=== PATIENT | male | born 1990 | race Caucasian/White ===

== ENCOUNTER 2017-02-05 16:00 | Inpatient (IN) | payer OTHER ==
[~2017-02-05] VITALS: Ht 165.1 cm; Wt 67.6 kg
--- NOTE | 2017-02-05 16:00 | NUR ---
Patient was BIBA at this time. [facility] at scene.
--- NOTE | 2017-02-05 16:01 | NUR ---
Dr. Cheney evaluating patient at [facility].
[2017-02-05] MEDS ORDERED: BENZTROPINE 2 MG/2 ML AMP IM ONE (16:05)
[2017-02-05] MEDS ORDERED: LORazepam 2 MG/ML VIAL IM ONE (16:05)
[2017-02-05] MEDS ORDERED: HALOPERIDOL IM 5 MG/ML VIAL IM ONE (16:05)
[2017-02-05] MEDS ORDERED: LORazepam 2 MG/ML VIAL ONE (16:14)
[2017-02-05] MEDS ORDERED: HALOPERIDOL IM 5 MG/ML VIAL ONE (16:15)
[2017-02-05 16:16] VITALS: BP 124/64
[2017-02-05] MEDS ORDERED: BENZTROPINE 2 MG/2 ML AMP ONE (16:16)
--- NOTE | 2017-02-05 16:17 | NUR ---
LAB drawing blood at [facility].
--- NOTE | 2017-02-05 16:20 | NUR ---
Patient taken to bed 03 via gurney per EMS.
[2017-02-05 16:28] LABS: BASOPHILS # (AUTO) 0.4 K/uL (0.00-0.22); EOSINOPHILS # (AUTO) 0.2 K/uL (0-0.4); EOSINOPHILS % (AUTO) 2.1 % (0.0-4.0); HEMATOCRIT 41.6 % (36-52); HEMOGLOBIN 14.4 g/dL (12.0-18.0); LYMPHOCYTES # (AUTO) 1.5 K/uL (2.0-11.5); MEAN CORPUSCULAR HEMOGLOBIN 31 pg (27-31); MEAN CORPUSCULAR HGB CONC 35 g/dL (33-37); MEAN CORPUSCULAR VOLUME 90 fL (80-94); MONOCYTES # (AUTO) 0.5 K/uL (0.8-1.0); MONOCYTES % (AUTO) 5.8 % (1.7-9.3); NEUTROPHILS # (AUTO) 5.2 K/uL (1.8-7.7); PLATELET COUNT (AUTO) 203 K/uL (140-450); RED BLOOD CELL COUNT(AUTO) 4.65 MIL/uL (4.20-6.10); RED CELL DISTRIBUTION WIDTH 13.3 % (11.6-13.7); WHITE BLOOD COUNT (AUTO) 7.8 K/uL (4.8-10.8)
--- NOTE | 2017-02-05 16:30 | NUR ---
[place] [employer] at bedside.
--- NOTE | 2017-02-05 16:33 | NUR ---
Patient being moved to bed 07 via gurney per EMT.
[2017-02-05] MEDS ORDERED: NACL 0.9% 1,000 ML IV ONE (16:40)
--- NOTE | 2017-02-05 16:49 | NUR ---
26/M biba from home with complaints of ALOC. Pt arrived to ED in four point restraints. Pt states he is hearing voices and is requesting to be restrained and states "I don't want to act like a fool. The voices will make me act like a fool." Pt denies wanting to hurt himself or others. Pt states "The voices are playing witch craft on me." Pt also states he uses meth, last meth use was on Father's day per patient. Pt is AOX3, name, location, date, not to situation d/t hearing voices. VSS.
--- NOTE | 2017-02-05 17:00 | NUR ---
X-Ray at bedside.
--- NOTE | 2017-02-05 17:10 | NUR ---
Pt placed on 5150 hold per [place] [facility]. Danger to self and others. 5150 reads pt is hearing voices and patient requesting to be placed in restraints to that "he does not act like a fool."
--- NOTE | 2017-02-05 17:13 | NUR ---
Physician order given to place velcor type restraints to BUE and BLE to prevent injury to self and others. Resraints placed with quick-release ties to bed frame. Pt under observation.
[2017-02-05 17:22] LABS: ALANINE AMINOTRANSFERASE 16 U/L (16-63); ALBUMIN 3.9 g/dL (3.4-5.0); ALCOHOL, BLOOD < 3 mg/dL (<3); ALKALINE PHOSPHATASE 105 U/L (46-116); ANION GAP 17.8 (8-16); ASPARTATE AMINOTRANSFERASE 17 U/L (15-37); CALCIUM 8.5 mg/dL (8.5-10.1); CARBON DIOXIDE 23.8 mmol/L (21-32); CHLORIDE 104 mmol/L (98-107); CREATININE 1.1 mg/dL (0.7-1.3); GFR ARICAN-AMERICAN 103 mL/min (>90); GFR NON ARICAN-AMERICAN 85 mL/min (>90); GLUCOSE 101 mg/dL (74-106); POTASSIUM 3.6 mmol/L (3.5-5.1); SODIUM SERUM 142 mmol/L (136-145); TOTAL BILIRUBIN 0.4 mg/dL (0.0-1.0); UREA NITROGEN, BLOOD 12 mg/dL (7-18)
[2017-02-05 17:23] LABS: ACETAMINOPHEN < 0.5 ug/ml (10-30); SALICYLATE < 2.8 mg/dL (2.8-20.0)
--- NOTE | 2017-02-05 17:25 | NUR ---
All clothing removed. Pt noted with only one shoe. Pt does not know what happen to the other shoe "I think the ambulance has it or I don't know." Pt placed in a gown. All belongings placed in a bag and set aside away from pt bedside. Security called to bedside to review the patient's belongings. Restraints removed. Pt is calm and cooperative at this time. Dr. Prakash made aware. CT also called to poultry picking machine tender the patient for the exam.
[2017-02-05 17:30] LABS: LACTIC ACID 2.1 mmol/L (0.4-2.0)
--- NOTE | 2017-02-05 17:31 | NUR ---
Per Lab, lactic acid is 2.1. I made this known to Dr. Prakash.
[2017-02-05] MEDS ORDERED: AZITHROMYCIN 500 MG in DEXTROSE 5% 250 ML IV ONE (17:40)
[2017-02-05] MEDS ORDERED: ONDANSETRON 4 MG/2 ML VIAL IVP PRN (17:40)
[2017-02-05] MEDS ORDERED: ACETAMINOPHEN 325 MG TAB PO PRN (17:40)
[2017-02-05] MEDS ORDERED: HYDROcodone/APAP 5/325 MG 1 TAB TAB PO PRN (17:40)
[2017-02-05 17:42] LABS: APPEARANCE,URINE CLEAR (CLEAR); BILIRUBIN,URINE NEGATIVE (NEGATIVE); BLOOD, URINE NEGATIVE (NEGATIVE); COLOR,URINE YELLOW (YELLOW); LEUKOCYTE ESTERASE ,URINE NEGATIVE (NEGATIVE); NITRITE, URINE NEGATIVE (NEGATIVE); PROTEIN,URINE NEGATIVE (NEGATIVE); UGLUCOSE NEGATIVE (NEGATIVE); UROBILINOGEN,URINE 0.2 EU/dL (0.2 - 1)
[2017-02-05 17:45] LABS: AMPHETAMINE, URINE NEG. ng/ml (NEG <=1000); BARBITURATE, URINE NEG. ng/ml (NEG <=200); BENZODIAZEPINE, URINE NEG. ng/mL (NEG <=200); CANNABINOID, URINE NEG. ng/mL (NEG <=50); COCAINE, URINE NEG. ng/mL (NEG <=300); OPIATE, URINE NEG. ng/mL (NEG <=2000); PHENCYCLIDINE SCREEN,URINE NEG. ng/mL (NEG <=25)
--- NOTE | 2017-02-05 17:46 | NUR ---
Pt taken to CT via gurney. Sister at bedside.
--- NOTE | 2017-02-05 17:56 | NUR ---
[facility]
--- NOTE | 2017-02-05 17:57 | NUR ---
Patient back from CT scan.
[2017-02-05] MEDS ORDERED: cefTRIAXone 1,000 MG VIAL ONE (18:05)
[2017-02-05] MEDS ORDERED: AZITHROMYCIN 500 MG INJ VIAL IV ONE ×2 (18:05→22:06)
--- NOTE | 2017-02-05 18:12 | NUR ---
Sister and mother at bedside. Pt continues to be calm and cooperative. Food tray provided. VSS.
--- NOTE | 2017-02-05 18:39 | NUR ---
Patient appears to be resting comfortably in bed. VSS.
--- NOTE | 2017-02-05 19:27 | NUR ---
Pt report given to Escobar HARVEY. Transfer of care at this time.
--- NOTE | 2017-02-05 22:20 | NUR ---
Patient will be admitted to care of [facility]. Admited to TELEMETRY. Will go to room 123B. Belongings list completed. Report to MATILDE HARVEY.
--- NOTE | 2017-02-05 22:30 | NUR ---
RECEIVED REPORT FROM ED RN FOR CONTINUITY OF CARE. 26 Y.O. MALE BROUGHT TO UNIT WITH DX: SUICIDAL, PATIENT IS A&OX4 DISCUSSED PLAN OF CARE WITH PATIENT, ABLE TO VERBALIZE UNDERSTANDING. SHIFT ASSESSMENT DONE, VS TAKEN, STABLE AT THIS TIME. IV TO RT HAND PATENT AND INFUSING FLUIDS WELL. MRSA SWAB COLLECTED, WRISTBANDS APPLIED. NO S/S OF RESPIRATORY DISTRESS NOTED ON ROOM AIR. PATIENT DENIES PAIN. SAFETY PRECAUTIONS ENFORCED. 1:1 SITTER AT BEDSIDE. CALL LIGHT WITHIN REACH, WILL CONTINUE TO MONITOR.
[2017-02-05] MEDS: AZITHROMYCIN 500 MG in DEXTROSE 5% 250 ML IV SCH (22:33)
[2017-02-05] MEDS: NACL 0.9% 1,000 ML IV SCH (22:33)
[2017-02-05 22:51] VITALS: BP 119/62
[2017-02-06] VITALS (7 sets, daily range): BP systolic 114–133; BP diastolic 50–85
--- NOTE | 2017-02-06 00:30 | NUR ---
VITAL SIGNS STABLE, PATIENT RESTING AT THIS TIME. NO S/S OF DISTRESS OR DISCOMFORT NOTED. 1:1 SITTER AT BEDSIDE.
--- NOTE | 2017-02-06 02:07 | NUR ---
PATIENT SLEEPING AT THIS TIME. NO S/S OF DISTRESS OR DISCOMFORT NOTED. 1:1 SITTER AT BEDSIDE. WILL CONTINUE TO MONITOR.
[2017-02-06] MEDS: NACL 0.9% 1,000 ML IV SCH ×2 (03:31→13:02)
--- NOTE | 2017-02-06 04:12 | NUR ---
VITAL SIGNS STABLE. PATIENT RESTING IN BED NO S/S OF DISTRESS OR DISCOMFORT NOTED. 1:1 SITTER AT BEDSIDE.
--- NOTE | 2017-02-06 06:00 | NUR ---
PATIENT SLEEPING AT THIS TIME, NO S/S OF DISTRESS OR DISCOMFORT NOTED.
[2017-02-06 06:17] LABS: HEMATOCRIT 42.7 % (36-52); HEMOGLOBIN 14.5 g/dL (12.0-18.0); MEAN CORPUSCULAR HEMOGLOBIN 31 pg (27-31); MEAN CORPUSCULAR HGB CONC 34 g/dL (33-37); MEAN CORPUSCULAR VOLUME 90 fL (80-94); PLATELET COUNT (AUTO) 188 K/uL (140-450); RED BLOOD CELL COUNT(AUTO) 4.72 MIL/uL (4.20-6.10); RED CELL DISTRIBUTION WIDTH 13.2 % (11.6-13.7)
[2017-02-06 06:34] LABS: ALBUMIN 3.5 g/dL (3.4-5.0); ANION GAP 9.3 (8-16); CARBON DIOXIDE 30.1 mmol/L (21-32); CREATININE 0.9 mg/dL (0.7-1.3); POTASSIUM 4.4 mmol/L (3.5-5.1); TOTAL BILIRUBIN 0.8 mg/dL (0.0-1.0); TOTAL PROTEIN, SERUM 6.5 g/dL (6.4-8.2)
--- NOTE | 2017-02-06 07:14 | NUR ---
ENDORSED PATIENT TO DAY RN FOR CONTINUITY OF CARE, PATIENT IS IN STABLE CONDITION.
--- NOTE | 2017-02-06 07:30 | NUR ---
RECEIVED REPORT FROM MATILDE HARVEY. PT SLEEPING BUT EASILY AWAKING BY INITIAL ASSESSMENT. ROOM AIR, NO S/S OF RESPIRATORY DISTRESS NOTED. IV SITE INTACT AND PATENT. ABDOMEN SOFT NON TENDER WITH ACTIVE BOWEL SOUNDS. PT ABLE TO MOVE ALL HIS EXTREMITIES, 1:1 SITTER AT BEDSIDE, POC EXPLAINED TO PT, PT VERBALIZED UNDERSTANDING, CALL LIGHT IN REACH, WILL CONTINUE TO MONITOR.
[2017-02-06 07:37] LABS: BAND % (MANUAL) 1 % (0-8); BASOPHILS % (MANUAL) 1 % (0-2); EOSINOPHILS % (MANUAL) 4 % (0-4); LYMPHOCYTES % (MANUAL) 28 % (20-46); MONOCYTES % (MANUAL) 6 % (5-12); NEUTROPHILS % (MANUAL) 60 (43-65)
--- NOTE | 2017-02-06 08:58 | NUR ---
PATIENT HAS BEEN SCREENED AND CATEGORIZED HIGH NUTRITION RISK. PATIENT WILL BE SEEN WITHIN 1-2 DAYS OF ADMISSION. 02/06/17-02/07/[address] Addendum: 02/06/17 at [address] ERROR
[2017-02-06] MEDS ORDERED: ENOXAPARIN 40 MG/0.4 ML SYR SUBQ SCH (09:00)
--- NOTE | 2017-02-06 09:15 | NUR ---
DUE MEDS GIVEN. PT TOLERATED WELL.
[2017-02-06] MEDS: LORazepam 2 MG/ML VIAL IVP PRN ×3 (11:09→22:28)
--- NOTE | 2017-02-06 11:09 | NUR ---
PT FELT ANXIETY, ATIVAN GIVEN ORDERED. PT'S SISTER AT BEDSIDE. WILL CONTINUE TO MONITOR.
--- NOTE | 2017-02-06 12:15 | NUR ---
PT STATED ANXIETY RELIVED.
[2017-02-06] MEDS: AZITHROMYCIN 500 MG in DEXTROSE 5% 250 ML IV SCH (16:58)
--- NOTE | 2017-02-06 17:09 | NUR ---
SS NOTE: SENT PSYCH PLACEMENT INQUIRIES TO: - [facility]
--- NOTE | 2017-02-06 18:12 | NUR ---
RECEIVED CALL FROM IDALIA YOO RN [phone] REGARDING PLACEMENT, PER NAILA PT NEEDS TO BE MEDICALLY CLEARED, THEN THEY CAN TAKE PT.
--- NOTE | 2017-02-06 19:16 | NUR ---
RECEIVED REPORT, ASSUMED CARE. PT AAOX4. NO C/O PAIN AT THIS TIME. RESPIRATION EVEN AND UNLABORED, NO SOB, NO S/S OF RESPIRATORY DISTRESS AT THIS TIME. EDUCATED RE: SAFETY AND FALL PREVENTION. PT DENIES FEELING SUICIDAL AT THIS TIME. SITTER AT BEDSIDE. PENDING DC TONIGHT ONCE MEDICALLY CLEARED. DISCUSSED PLAN OF CARE. PT VERBALIZED UNDERSTANDING. WILL CONTINUE TO MONITOR.
--- NOTE | 2017-02-06 20:12 | NUR ---
IV HL TO RT HAND INFILTRATED. INSERTED A NEW LINE TO THE LT HAND, GAUGE 22 X2 ATTEMPT WITH GOOD BLOOD RETURN. CONTINUE ON IVF NS AT 100ML/HR. WILL CONTINUE TO MONITOR.
--- NOTE | 2017-02-06 20:40 | NUR ---
DISCHARGE ORDER FROM DR. GRAF PT IS MEDICALLY CLEARED. PT ACCEPTED AT [facility]. PT MADE AWARE, HE VERBALIZED UNDERSTANDING.
--- NOTE | 2017-02-06 21:20 | NUR ---
PT GAVE VERBAL CONSENT TO NOTIFY, KYLE (SISTER) RE: TRANSFER TO [facility]. CALL MADE TO GET A HOLD OF KYLE, NO RESPONSE. MESSAGE LEFT TO VOICEMAIL. PT MADE AWARE AND VERBALIZED UNDERSTANDING.
--- NOTE | 2017-02-06 22:20 | NUR ---
PT SUDDENLY HAD EPISODE OF BODY SHAKING WHILE DRESSING UP. SITTER AT BEDSIDE, ASSISTED BACK TO BED. PT STATES, "MY BODY TELLS ME TO DO IT." PT OBSERVED TO BE VERY ANXIOUS AT THIS TIME AND HAVING SECOND THOUGHTS OF GOING TO [facility]." REASSURED FEELINGS. EDUCATION PROVIDED RE: BENEFITS OF GOING TO [facility]. PT VERBALIZED UNDERSTANDING. NOTED WITH INTERMITTENT HAND TWITCHING. PT STRONGLY DENIES FEELING SUICIDAL AT THIS TIME. DENIES AH/VH/HI AT THIS TIME. WILL CONTINUE TO MONITOR. AWAITING FOR POLICE CRIME SCENE TECHNICIAN TO DISTRIBUTION A CLASS LINEMAN THE PATIENT.
--- NOTE | 2017-02-06 22:28 | NUR ---
ATIVAN 2MG IV PUSH ADMINISTERED TO CALM PT DOWN. 3 REPAIRER SWITCHGEAR ARRIVED TO DYE WINCH OPERATOR THE PT. REPORT GIVEN.
--- NOTE | 2017-02-06 22:35 | NUR ---
IVF NS STOPPED AND IV HL TO RT HAND REMOVED. WRISTBAND AND TELE MONITOR TAKEN OFF FROM THE PATIENT.
--- NOTE | 2017-02-06 22:50 | NUR ---
PT LEFT ACCOMPANIED BY 3 BRUSH STAINER TO BE TRANSPORTED TO [facility]. ALL BELONGINGS GIVEN TO THE PATIENT. PT CALM AT THIS TIME. PT IN STABLE CONDITION.
== END 2017-02-06 22:50 | disposition designated cancer center or children's hospital (05) | DRG 720 ==
LOC: MED 16:00 → MTU 17:46
PROVIDERS: ADMIT Hospitalist; ATTEND Hospitalist
DX: A41.9 Sepsis, unspecified organism (principal); F33.3 Major depressive disorder, recurrent, severe with psychotic symptoms; J18.9 Pneumonia, unspecified organism; F15.10 Other stimulant abuse, uncomplicated
CPT/HCPCS: 36415; 70450; 71010; 80053; 80305; 81003; 82948; 83605; 83735; 85025; 87040; 87081; 93005; 96361; 96365; 96372; 99285; G0480; G0482; J0456; J0515; J0696; J1630; J1650; J2060; J2405; J7030; J7060

== ENCOUNTER 2017-02-09 12:31 | Emergency (ER) | payer OTHER ==
[~2017-02-09] VITALS: Ht 175.3 cm; Wt 83.0 kg
[2017-02-09 12:55] VITALS: BP 199/104
--- NOTE | 2017-02-09 13:28 | NUR ---
Patient ambulated to bed 7. RN evaluating patient at bedside.
[2017-02-09] MEDS ORDERED: NACL 0.9% 1,000 ML IV SCH (13:29)
[2017-02-09] MEDS ORDERED: ONDANSETRON 4 MG/2 ML VIAL IVP ONE (13:30)
[2017-02-09] MEDS ORDERED: diphenhydrAMINE 50 MG/ML VIAL IVP ONE (13:30)
--- NOTE | 2017-02-09 13:30 | NUR ---
26/M BIB FRIEND C/O DIZZINESS AND HEADACHE X2 DAYS. PT DENIES ANY MEDICAL HX, RECENTLY HOSPITALIZED FOR SUICIDAL IDEATION. PT DENIES N/V/D; SKIN IS PINK/WARM/DRY; AAOX4 WITH EVEN AND STEADY GAIT; LUNGS CLEAR BL; HR EVEN AND REGULAR; PT DENIES ANY FEVER, CP, SOB, OR COUGH AT THIS TIME; PATIENT STATES PAIN OF 10/10 AT THIS TIME; VSS; PATIENT POSITIONED FOR COMFORT; HOB ELEVATED; BEDRAILS UP X2; BED DOWN. ER MD MADE AWARE OF PT STATUS.
--- NOTE | 2017-02-09 13:55 | NUR ---
LAB AT BEDSIDE.
--- NOTE | 2017-02-09 13:57 | NUR ---
INSERTED IV CATH NO 20GR HAND. PT TLOREATED PROCEDURE WELL. IV PATENT/INTACT
--- NOTE | 2017-02-09 14:00 | NUR ---
GAVE IV MED ORDER.
[2017-02-09 14:14] LABS: BASOPHILS # (AUTO) 0.3 K/uL (0.00-0.22); EOSINOPHILS # (AUTO) 0.1 K/uL (0-0.4); EOSINOPHILS % (AUTO) 1.4 % (0.0-4.0); HEMATOCRIT 46.5 % (36-52); HEMOGLOBIN 15.6 g/dL (12.0-18.0); LYMPHOCYTES # (AUTO) 1.5 K/uL (2.0-11.5); LYMPHOCYTES % (AUTO) 18.4 % (20.5-51.1); MEAN CORPUSCULAR HEMOGLOBIN 30 pg (27-31); MEAN CORPUSCULAR HGB CONC 34 g/dL (33-37); MEAN CORPUSCULAR VOLUME 90 fL (80-94); MONOCYTES # (AUTO) 0.3 K/uL (0.8-1.0); MONOCYTES % (AUTO) 4.1 % (1.7-9.3); NEUTROPHILS # (AUTO) 5.9 K/uL (1.8-7.7); NEUTROPHILS % (AUTO) 72.1 % (42.2-75.2); PLATELET COUNT (AUTO) 214 K/uL (140-450); RED BLOOD CELL COUNT(AUTO) 5.19 MIL/uL (4.20-6.10); RED CELL DISTRIBUTION WIDTH 12.9 % (11.6-13.7); WHITE BLOOD COUNT (AUTO) 8.1 K/uL (4.8-10.8)
--- NOTE | 2017-02-09 14:21 | NUR ---
PT TAKEN TO CT VIA W/C ACCOMPANIED BY RN IV THERAPY.
[2017-02-09 14:31] LABS: CALCIUM 8.8 mg/dL (8.5-10.1); CARBON DIOXIDE 22.9 mmol/L (21-32); CREATININE 0.9 mg/dL (0.7-1.3); POTASSIUM 3.9 mmol/L (3.5-5.1)
--- NOTE | 2017-02-09 14:33 | NUR ---
PT BACK FROM CT
[2017-02-09 14:36] LABS: PARTIAL THROMBOPLASTIN TIME 29.1 secs (22-35.6); PROTHROMBIN TIME 10.5 secs (10.8-13.4)
[2017-02-09 14:37] LABS: ALBUMIN 4.2 g/dL (3.4-5.0); AMYLASE 46 U/L (25-115); LIPASE 120 U/L (73-393); TOTAL BILIRUBIN 0.4 mg/dL (0.0-1.0); TOTAL PROTEIN, SERUM 7.5 g/dL (6.4-8.2)
--- NOTE | 2017-02-09 15:30 | NUR ---
Patient appears to be resting comfortably in bed. Vital Signs within normal limits. Respirations even and unlabored.WILL CONTINUE TO MONITER
[2017-02-09 16:32] LABS: APPEARANCE,URINE CLEAR (CLEAR); BILIRUBIN,URINE NEGATIVE (NEGATIVE); BLOOD, URINE NEGATIVE (NEGATIVE); COLOR,URINE YELLOW (YELLOW); LEUKOCYTE ESTERASE ,URINE NEGATIVE (NEGATIVE); NITRITE, URINE NEGATIVE (NEGATIVE); PROTEIN,URINE NEGATIVE (NEGATIVE); UGLUCOSE NEGATIVE (NEGATIVE); UROBILINOGEN,URINE 0.2 EU/dL (0.2 - 1)
[2017-02-09 16:43] VITALS: BP 141/89
--- NOTE | 2017-02-09 16:43 | NUR ---
Patient discharged with v/s stable. Written and verbal after care instructions given and explained. Patient alert, oriented and verbalized understanding of instructions. Ambulatory with steady gait. All questions addressed prior to discharge. ID band removed. Patient advised to follow up with PMD. Rx of TYLENOL&ANTIVERT given. Patient educated on indication of medication including possible reaction and side effects. Opportunity to ask questions provided and answered.
== END 2017-02-09 16:43 | disposition home or self-care (01) ==
LOC: MED 12:31
DX: G44.209 Tension-type headache, unspecified, not intractable (principal); I10 Essential (primary) hypertension; F15.10 Other stimulant abuse, uncomplicated; R11.10 Vomiting, unspecified
CPT/HCPCS: 36415; 70450; 80053; 81003; 82150; 82553; 83690; 83880; 84484; 85025; 85610; 85730; 93005; 96361; 96374; 96375; 99285; J1200; J2405; J7030